=== PATIENT | male | born 1980 | race Caucasian/White ===

== ENCOUNTER 2025-01-15 19:58 | Emergency (ER) | payer OTHER, BC ==
[2025-01-15] MEDS ORDERED: IBUPROFEN 600 MG TABLET (FP) PO ONE (20:23)
[2025-01-15] MEDS: IBUPROFEN 600 MG TABLET (FP) PO ONE (20:25)
[2025-01-15 20:29] VITALS: BP 131/85; PULSE 73; RESP 18; TEMP 98.8; BMI 26.4
== END 2025-01-15 20:34 | disposition home or self-care (01) ==
LOC: FER 19:58
DX: R07.89 Other chest pain (principal); M54.9 Dorsalgia, unspecified; V43.52XA Car driver injured in collision with other type car in traffic accident, initial encounter; Y92.410 Unspecified street and highway as the place of occurrence of the external cause
CPT/HCPCS: 99283-25